=== PATIENT | male | born 1980 | race Caucasian/White ===

== ENCOUNTER 2016-09-12 19:40 | Emergency (ER) | payer MEDICAID, OTHER ==
[~2016-09-12] VITALS: Ht 172.7 cm; Wt 104.3 kg
[~2016-09-12 19:40] MED LIST: ALBU0.0939
[2016-09-12 19:50] VITALS: BP 117/78
--- NOTE | 2016-09-12 21:44 | NUR ---
PATIENT LEFT WITHOUT BEING SEEN BY DR. SEGUNDO. NO FURTHER CARE PROVIDED FOR PATIENT.
== END 2016-09-12 21:44 | disposition left against medical advice (07) ==
LOC: MED 19:40
DX: S41.111A Laceration without foreign body of right upper arm, initial encounter (principal); Z53.21 Procedure and treatment not carried out due to patient leaving prior to being seen by health care provider; X58.XXXA Exposure to other specified factors, initial encounter; Y93.89 Activity, other specified; Y92.89 Other specified places as the place of occurrence of the external cause; Y99.8 Other external cause status

== ENCOUNTER 2016-12-26 12:02 | Emergency (ER) | payer MEDICAID ==
[~2016-12-26] VITALS: Ht 172.7 cm; Wt 108.9 kg
--- NOTE | 2016-12-26 12:02 | NUR ---
Patient was BIBA at this time. [place] [employer] at [facility].
[2016-12-26 12:05] VITALS: BP 137/85
--- NOTE | 2016-12-26 12:13 | NUR ---
Dr. Rizo evaluating patient.
--- NOTE | 2016-12-26 12:15 | NUR ---
PATIENT BIBA C/O SHORTNESS OF BREATH S/P RUNNING FROM THE [employer] X TODAY. PT AWAKE, ALERT, RR EVEN/UNLABORED ON ARRIVAL. [place] [employer] PRESENT AT THIS TIME.HX OF ASTHMA RX OF ALBUTEROL;DENIES N/V/D; SKIN IS PINK/WARM/DRY; AAOX4 WITH EVEN AND STEADY GAIT; LUNGS CLEAR BL; HR EVEN AND REGULAR; PT DENIES ANY FEVER, CP, SOB, OR COUGH AT THIS TIME; PATIENT STATES PAIN OF 8/10 AT THIS TIME; PATIENT POSITIONED FOR COMFORT; HOB ELEVATED; BEDRAILS UP X2; BED DOWN. ER MD MADE AWARE OF PT STATUS.
--- NOTE | 2016-12-26 12:18 | NUR ---
Patient taken to bed 11 via gurney per EMS.
[2016-12-26] MEDS ORDERED: SULFAMETH/TRIMETH DS 800/160MG 1 TAB PO ONE (12:20)
[2016-12-26 12:36] LABS: BASOPHILS # (AUTO) 0.2 K/uL (0.00-0.22); BASOPHILS % (AUTO) 3.1 % (0.0-2.0); EOSINOPHILS # (AUTO) 0.5 K/uL (0-0.4); EOSINOPHILS % (AUTO) 6.4 % (0.0-4.0); HEMATOCRIT 42.5 % (36-52); HEMOGLOBIN 14.4 g/dL (12.0-18.0); LYMPHOCYTES # (AUTO) 2.2 K/uL (2.0-11.5); LYMPHOCYTES % (AUTO) 28.5 % (20.5-51.1); MEAN CORPUSCULAR HEMOGLOBIN 32 pg (27-31); MEAN CORPUSCULAR HGB CONC 34 g/dL (33-37); MEAN CORPUSCULAR VOLUME 93 fL (80-94); MONOCYTES % (AUTO) 12.9 % (1.7-9.3); NEUTROPHILS % (AUTO) 49.1 % (42.2-75.2); PLATELET COUNT (AUTO) 190 K/uL (140-450); RED BLOOD CELL COUNT(AUTO) 4.57 MIL/uL (4.20-6.10); RED CELL DISTRIBUTION WIDTH 11.8 % (11.6-13.7); WHITE BLOOD COUNT (AUTO) 7.9 K/uL (4.8-10.8)
--- NOTE | 2016-12-26 13:26 | NUR ---
Patient discharged with v/s stable. Written and verbal after care instructions given and explained.Patient alert, oriented and verbalized understanding of instructions. Ambulatory with steady gait. All questions addressed prior to discharge. ID band removed. Patient advised to follow up with PMD. Rx of BACTRIM AND ALBUTEROL given. Patient educated on indication of medication including possible reaction and side effects. Opportunity to ask questions provided and answered.
[2016-12-26 13:32] LABS: ANION GAP 15.9 (8-16); CARBON DIOXIDE 21.8 mmol/L (21-32); CREATININE 1.1 mg/dL (0.7-1.3); POTASSIUM 3.7 mmol/L (3.5-5.1)
[2016-12-26 13:34] VITALS: BP 155/72
[2016-12-26 13:34] LABS: ALBUMIN 3.8 g/dL (3.4-5.0); TOTAL BILIRUBIN 0.8 mg/dL (0.0-1.0)
== END 2016-12-26 13:26 ==
LOC: MED 12:02
DX: L03.116 Cellulitis of left lower limb (principal); J45.909 Unspecified asthma, uncomplicated; F11.10 Opioid abuse, uncomplicated; F19.10 Other psychoactive substance abuse, uncomplicated; Z79.899 Other long term (current) drug therapy; Z88.1 Allergy status to other antibiotic agents; Z71.6 Tobacco abuse counseling
CPT/HCPCS: 36415; 71010; 73090; 80053; 85025; 99285; Q0092

== ENCOUNTER 2017-11-15 15:45 | Emergency (ER) | payer MEDICAID ==
[~2017-11-15] VITALS: Ht 172.7 cm; Wt 108.9 kg
--- NOTE | 2017-11-15 15:46 | NUR ---
PT IN RESTROOM
[2017-11-15 15:53] VITALS: BP 152/104
--- NOTE | 2017-11-15 16:00 | NUR ---
PT PRESENTS TO ED WITH C/O OF GENERALIZED WEAKNESS AND DIZZINESS X THIS MORNING AND SMALL LESIONS TO CENTER OF CHEST AND LEFT SHOULDER NOTED. PT REPORTS GREEN DRAINAGE TO CENTER LESION. PT DENIES ANY OTHER SYMPTOMS. PT REPORTS HX OF HEP C, HTN, AND ASHTMA. PT PLACED ON MONITOR WITH ALL VSS, SINUS TACHYCARDIA NOTED. PENDING MD VICTOR. WILL CONTINUE TO MONITOR.
[2017-11-15] MEDS ORDERED: LORazepam 2 MG/ML VIAL IVP ONE (16:25)
[2017-11-15] MEDS ORDERED: NACL 0.9% 500 ML IV ONE (16:25)
--- NOTE | 2017-11-15 17:30 | NUR ---
PT RESTING COMFORTABLY IN BED. NO COMPLAINTS AT THIS TIME. WILL CONTINUE TO MONITOR.
[2017-11-15 18:56] VITALS: BP 160/101
--- NOTE | 2017-11-15 18:58 | NUR ---
Patient discharged with v/s stable. Written and verbal after care instructions given and explained. Patient alert, oriented and verbalized understanding of instructions. Ambulatory with steady gait. All questions addressed prior to discharge. ID band removed. Patient advised to follow up with PMD. Rx of ALBUTEROL, XANAX given. Patient educated on indication of medication including possible reaction and side effects. Opportunity to ask questions provided and answered.
== END 2017-11-15 18:57 | disposition home or self-care (01) ==
LOC: MED 15:45
DX: F45.8 Other somatoform disorders (principal); J45.909 Unspecified asthma, uncomplicated; I10 Essential (primary) hypertension; Z88.1 Allergy status to other antibiotic agents
CPT/HCPCS: 96361; 96374; 99285; J2060; J7030

== ENCOUNTER 2017-12-12 13:20 | Emergency (ER) | payer OTHER ==
[~2017-12-12] VITALS: Ht 172.7 cm; Wt 108.9 kg
[2017-12-12 13:24] VITALS: BP 148/106
--- NOTE | 2017-12-12 13:26 | NUR ---
PT C/O ABSCESS UNDER R AXILLARY REGION. +ERYTHEMA AND SWELLING, PAINFUL TO TOUCH 8/10 PAIN. SAYS THE ABSCESS COMES AND GOES. NO OTHER COMPLAINTS. HX: HEP C, ASTHMA MED: NONE
--- NOTE | 2017-12-12 13:28 | NUR ---
PT AMBULATED TO ED BED 7 REPORT TO ZORAIDA FERNÁNDEZ
[2017-12-12] MEDS ORDERED: CLINDAMYCIN 600 MG/4 ML VIAL IM ONE (13:50)
[2017-12-12] MEDS ORDERED: KETOROLAC 60 MG/2 ML VIAL IM ONE ×2 (13:50→14:30)
[2017-12-12] MEDS ORDERED: CLINDAMYCIN 600 MG/4 ML VIAL ONE (14:29)
[2017-12-12 14:33] VITALS: BP 135/75
--- NOTE | 2017-12-12 14:38 | NUR ---
Patient discharged with v/s stable. Written and verbal after care instructions given and explained. Patient alert, oriented and verbalized understanding of instructions. Ambulatory with steady gait. All questions addressed prior to discharge. ID band removed. Patient advised to follow up with PMD. Rx of MOTRIN AND CLEOCIN given. Patient educated on indication of medication including possible reaction and side effects. Opportunity to ask questions provided and answered.
== END 2017-12-12 14:35 | disposition home or self-care (01) ==
LOC: MED 13:20
DX: L03.113 Cellulitis of right upper limb (principal); J45.909 Unspecified asthma, uncomplicated; I10 Essential (primary) hypertension; Z88.1 Allergy status to other antibiotic agents; Z79.899 Other long term (current) drug therapy
CPT/HCPCS: 96372; 99284; J1885; J3490

== ENCOUNTER 2019-05-16 12:40 | Emergency (ER) | payer MEDICAID, OTHER ==
[~2019-05-16] VITALS: Ht 172.7 cm; Wt 111.1 kg
[2019-05-16 13:09] VITALS: BP 131/86
--- NOTE | 2019-05-16 13:10 | NUR ---
38/M BIB SELF C/O COUGH, BODY ACHES 4/10 X YESTERDAY..MED HX: ASTHMA.DENIES N/V/D; SKIN IS PINK/WARM/DRY; AAOX4 WITH EVEN AND STEADY GAIT; LUNGS CLEAR BL; HR EVEN AND REGULAR; PT DENIES ANY FEVER, CP, SOB, OR COUGH AT THIS TIME; PATIENT STATES PAIN OF 4/10 AT THIS TIME. PATIENT POSITIONED FOR COMFORT; HOB ELEVATED; BEDRAILS UP X1; BED DOWN. ER MD MADE AWARE OF PT STATUS.
--- NOTE | 2019-05-16 14:17 | NUR ---
FLU SWAB COLLECTED
--- NOTE | 2019-05-16 14:20 | NUR ---
MARINO FENTON EVALUATING PT AT BEDSIDE.
--- NOTE | 2019-05-16 15:34 | NUR ---
MOVED TO [facility]
--- NOTE | 2019-05-16 15:37 | NUR ---
Patient discharged with v/s stable. Written and verbal after care instructions given and explained. Patient alert, oriented and verbalized understanding of instructions. Ambulatory with steady gait. All questions addressed prior to discharge. ID band removed. Patient advised to follow up with PMD. Rx of ACETAMINOPHEN, IBUPROFEN & PROMETHAZINE given. Patient educated on indication of medication including possible reaction and side effects. Opportunity to ask questions provided and answered.
[2019-05-16 15:38] VITALS: BP 131/86
== END 2019-05-16 15:37 | disposition home or self-care (01) ==
LOC: MED 12:40
DX: B34.9 Viral infection, unspecified (principal); J45.909 Unspecified asthma, uncomplicated; I10 Essential (primary) hypertension; F17.210 Nicotine dependence, cigarettes, uncomplicated; Z88.1 Allergy status to other antibiotic agents; Z79.899 Other long term (current) drug therapy
CPT/HCPCS: 87804; 99283

== ENCOUNTER 2019-12-14 02:08 | Emergency (ER) | payer MEDICAID ==
[~2019-12-14] VITALS: Ht 172.7 cm; Wt 112.9 kg
[2019-12-14 02:13] VITALS: BP 127/86
--- NOTE | 2019-12-14 02:18 | NUR ---
PT AMBULATED TO BED #11
--- NOTE | 2019-12-14 02:22 | NUR ---
COVERING PRIMARY RN FOR LUNCH RELIEF--- SEE COMPLETE ASSESSMENT FOR ADDITIONAL INFORMATION
--- NOTE | 2019-12-14 02:32 | NUR ---
ERMD AT BEDSIDE FOR EVALUATION
[2019-12-14] MEDS ORDERED: DICYCLOMINE HCL LIQUID 10 MG/5 ML UDC PO ONE (02:35)
[2019-12-14] MEDS ORDERED: LIDOCAINE VISCOUS 2% 20 ML UDC PO ONE (02:35)
[2019-12-14] MEDS ORDERED: ALUMINUM HYD/MAG/SIMETHICONE 30 ML UDC PO ONE (02:35)
[2019-12-14 03:21] VITALS: BP 127/86
--- NOTE | 2019-12-14 03:21 | NUR ---
Patient discharged with v/s stable. Written and verbal after care instructions given and explained. Patient alert, oriented and verbalized understanding of instructions. Ambulatory with steady gait. All questions addressed prior to discharge. ID band removed. Patient advised to follow up with PMD. Rx of ciprodex & protonix given. Patient educated on indication of medication including possible reaction and side effects. Opportunity to ask questions provided and answered.
== END 2019-12-14 03:21 | disposition home or self-care (01) ==
LOC: MED 02:08
DX: K29.70 Gastritis, unspecified, without bleeding (principal); K21.9 Gastro-esophageal reflux disease without esophagitis; F17.200 Nicotine dependence, unspecified, uncomplicated; I10 Essential (primary) hypertension; R56.9 Unspecified convulsions; J45.909 Unspecified asthma, uncomplicated; Z88.1 Allergy status to other antibiotic agents; Z79.899 Other long term (current) drug therapy
CPT/HCPCS: 93005; 99283; 99284

== ENCOUNTER 2020-01-24 10:20 | Emergency (ER) | payer MEDICAID ==
[~2020-01-24] VITALS: Ht 172.7 cm; Wt 111.1 kg
[2020-01-24 10:25] VITALS: BP 139/61
--- NOTE | 2020-01-24 10:39 | NUR ---
To ED bed 07
--- NOTE | 2020-01-24 10:58 | NUR ---
blood cultures, mary ann swab, labs collected and sent with labeling associate.
--- NOTE | 2020-01-24 11:04 | NUR ---
XR at bedside.
--- NOTE | 2020-01-24 11:22 | NUR ---
see complete assessment.
[2020-01-24 11:24] LABS: BASOPHILS # (AUTO) 0.1 K/uL (0.00-0.22); BASOPHILS % (AUTO) 0.9 % (0.0-2.0); EOSINOPHILS # (AUTO) 0.6 K/uL (0-0.4); EOSINOPHILS % (AUTO) 6.4 % (0.0-4.0); HEMATOCRIT 44.7 % (36-52); HEMOGLOBIN 15.5 g/dL (12.0-18.0); LYMPHOCYTES # (AUTO) 1.7 K/uL (2.0-11.5); LYMPHOCYTES % (AUTO) 19.6 % (20.5-51.1); MEAN CORPUSCULAR HEMOGLOBIN 32 pg (27-31); MEAN CORPUSCULAR HGB CONC 35 g/dL (33-37); MEAN CORPUSCULAR VOLUME 93.3 fL (80-94); MONOCYTES # (AUTO) 0.6 K/uL (0.8-1.0); MONOCYTES % (AUTO) 7.4 % (1.7-9.3); NEUTROPHILS # (AUTO) 5.6 K/uL (1.8-7.7); NEUTROPHILS % (AUTO) 65.7 % (42.2-75.2); PLATELET COUNT (AUTO) 189 K/uL (140-450); RED BLOOD CELL COUNT(AUTO) 4.79 MIL/uL (4.20-6.10); RED CELL DISTRIBUTION WIDTH 12.6 % (11.6-13.7); WHITE BLOOD COUNT (AUTO) 8.6 K/uL (4.8-10.8)
[2020-01-24 11:52] LABS: ALBUMIN 3.9 g/dL (3.4-5.0); ANION GAP 15.2 (8-16); CARBON DIOXIDE 24.9 mmol/L (21-32); POTASSIUM 4.1 mmol/L (3.5-5.1); TOTAL BILIRUBIN 0.9 mg/dL (0.0-1.0)
[2020-01-24 11:53] LABS: CREATINE KINASE MB 3.2 ng/mL (0-3.6)
--- NOTE | 2020-01-24 12:58 | NUR ---
pt discharged by Dr. Mays with VSS and rx of naprosyn.
[2020-01-24 12:59] VITALS: BP 154/89
[2020-01-24 13:34] LABS: CHOL/HDL RATIO 4.4 (1-4.5)
== END 2020-01-24 12:58 | disposition home or self-care (01) ==
LOC: MED 10:20
DX: M94.0 Chondrocostal junction syndrome [Tietze] (principal); J45.909 Unspecified asthma, uncomplicated; Z79.899 Other long term (current) drug therapy; Z88.1 Allergy status to other antibiotic agents
CPT/HCPCS: 36415; 71045; 80053; 82550; 82553; 83880; 84484; 85025; 85379; 87040; 93005; 99285

== ENCOUNTER 2021-07-27 13:13 | Emergency (ER) | payer MEDICAID ==
[~2021-07-27] VITALS: Ht 172.7 cm; Wt 124.8 kg
[2021-07-27 13:27] VITALS: BP 127/93
[2021-07-27] MEDS ORDERED: LOPE1TAB14 PO (14:37)
[2021-07-27] MEDS ORDERED: AZIT250T4 PO (14:37)
[2021-07-27] MEDS ORDERED: PROM118S5 PO (14:37)
[2021-07-27] MEDS ORDERED: ONDA-188 SL (14:37)
[2021-07-27 14:54] VITALS: BP 121/87
== END 2021-07-27 14:52 | disposition home or self-care (01) ==
LOC: MED 13:13
DX: B34.9 Viral infection, unspecified (principal); I10 Essential (primary) hypertension; J45.909 Unspecified asthma, uncomplicated; Z88.1 Allergy status to other antibiotic agents; Z20.822 Contact with and (suspected) exposure to COVID-19
CPT/HCPCS: 71045; 99284

== ENCOUNTER 2021-10-19 19:33 | Emergency (ER) | payer MEDICAID ==
[~2021-10-19] VITALS: Ht 172.7 cm; Wt 123.8 kg
[~2021-10-19 19:33] MED LIST changes: +AZIT250T4 PO; +LOPE1TAB14 PO; +ONDA-188 SL; +PROM118S5 PO
[2021-10-19 19:39] VITALS: BP 129/78
--- NOTE | 2021-10-19 20:23 | NUR ---
Dr. Joseph examining patient.
[2021-10-19] MEDS ORDERED: SULF-59 PO (20:48)
[2021-10-19] MEDS ORDERED: LISI-487 PO (20:48)
[2021-10-19] MEDS ORDERED: ATA25 PO (20:48)
[2021-10-19] MEDS ORDERED: OMEP40EC24 PO (20:48)
[2021-10-19 21:01] VITALS: BP 126/67
--- NOTE | 2021-10-19 21:01 | NUR ---
Patient discharged with v/s stable. Written and verbal after care instructions given and explained. Patient alert, oriented and verbalized understanding of instructions. Ambulatory with steady gait. All questions addressed prior to discharge. ID band removed. Patient advised to follow up with PMD. Rx of Lisinopril, Prilosec, Atarax and Bactrim given. Patient educated on indication of medication including possible reaction and side effects. Opportunity to ask questions provided and answered.
== END 2021-10-19 21:01 | disposition home or self-care (01) ==
LOC: MED 19:33
DX: I10 Essential (primary) hypertension (principal); L03.314 Cellulitis of groin; F41.9 Anxiety disorder, unspecified; J45.909 Unspecified asthma, uncomplicated; Z88.1 Allergy status to other antibiotic agents; Z72.89 Other problems related to lifestyle
CPT/HCPCS: 99283